=== PATIENT | male | born 2005 | race Caucasian/White ===

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

== ENCOUNTER 2025-01-14 21:32 | Emergency (ER) | payer BC, SELFPAY ==
[2025-01-14 21:33] VITALS: BP 143/69; PULSE 117; RESP 14; TEMP 36.8; O2SAT 97
--- NOTE | 2025-01-14 21:47 | W.ED.WOUNDLC ---
HPI - Wound/Laceration General: Chief Complaint: Wound/Laceration Stated Complaint: busted chin Time Seen by Provider: 01/14/25 21:40 Source: patient Mode of arrival: ambulatory Limitations: no limitations History of Present Illness: Patient is a nice 19-year-old male who presents to ED today for evaluation of a chin laceration that he sustained just prior to arrival after he was playing basketball with some other individuals and he accidentally got elbowed to the chin. Tetanus is up-to-date. Onset (ago): hour(s) Location: face Place: outdoors Patient tetanus UTD: Yes Context: accidental Associated symptoms: Reports no associated symptoms Related Data Previous Rx's ?Medication ?Instructions ?Recorded albuterol sulfate 90 mcg/actuation 2 puff inhalation Q6H PRN 10/03/22 aerosol inhaler shortness of breath or wheezing #8.5 grams Allergies Allergy/AdvReac Type Severity Reaction Status Date / Time No Known Allergies Allergy Verified 01/14/25 21:38 Review of Systems Eyes: Denies: change in vision ENMT: Reports: other (chin laceration); Denies: throat pain, odynophagia, mouth pain, swelling of lips/tongue, oral sores, bleeding gums or dental pain Skin/Breast: Reports: other (chin laceration) PFS ED PFSH: Medical History Eczema Asthma Surgical History No history of previous surgery Family History Grandfather Cancer nonhodgkins lymphoma Denies family history of Diabetes CAD (coronary artery disease) Hyperlipidemia Family history of premature coronary artery disease Hypertension Stroke Social History Smoking and tobacco/nicotine status: never used tobacco/nicotine Alcohol intake: never Substance/Drug Use: never Lives independently: Yes Household members: other Details: parents Marital status: Single Number of children: 0 Education level details: college student at [employer] (prepharm) Current occupational status: employed 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 gaping chin laceration-2cm MOUTH: Normal oral and palatal mucosa present and lip normal TEETH & GINGIVA: Yes other (no dental injuries noted) Neuro: COMMON NORMALS: patient oriented x3 SENSORIUM/ORIENTATION: Yes alert, Yes oriented to person, Yes oriented to place and Yes oriented to time Procedures Laceration Laceration 1: Site: face (chin) Size (cm): 2.0 Description: linear Depth: simple, single layer Local Anesthetic: lidocaine 1% and with epi Amount of anesthesia used (mL): 2.0 Pre-repair: wound explored and irrigated extensively Skin layer closed with: nylon Size (cm): 4-0 Number of sutures: 4 Technique: simple, interrupted Course Vital Signs: Vital signs: Vital Signs Temperature 98.3 F 01/14/25 21:33 Pulse Rate 117 H 01/14/25 21:33 Respiratory Rate 14 01/14/25 21:33 Blood Pressure 143/69 01/14/25 21:33 Pulse Oximetry 97 01/14/25 21:33 MDM - Wound/Laceration Medical Decision Making Wound was copiously irrigated and repaired as documented. Tetanus is up-to-date. Wound care/infection precautions discussed. Differential Diagnosis Likely laceration Medical Records I reviewed the patient's medical records. No radiology studies performed this visit Discharge Plan Discharge Patient Disposition: Home Clinical Impression: Chin laceration Qualifiers: Encounter type: initial encounter Qualified Code(s): S01.81XA - Laceration without foreign body of other part of head, initial encounter Condition: Stable Prescriptions: No Action albuterol sulfate 90 mcg/actuation HFA aerosol inhaler 2 puff inhalation Q6H PRN (Reason: shortness of breath or wheezing) Qty: 8.5 0RF Discharge Orders: Discharge ED (Routine); Ordered 01/14/25 Ordered By: Kenna Hamilton Referrals: Michelle Will MD [Primary Care Provider] - Patient Instructions: Care For Your Stitches (DC), Laceration (DC), Facial Laceration (ED) Activity Restrictions/Additional Instructions: Keep wound/laceration clean with warm soap and water twice daily. Monitor for signs of infection such as redness, swelling, increased pain, or drainage. Please seek medical re-evaluation if these occur. If you received sutures today these will need to be removed (unless you were told by the provider that they are absorbable). The provider should have discussed with you the length of time until removal-7 DAYS. Print Language: Thai Coding Level of Care Code ED Nursing Specialist for Jessie Salamanca
== END 2025-01-14 22:49 | disposition home or self-care (01) ==
PROVIDERS: Emergency Provider Physician Assistant; PCP Family Medicine
DX: S01.81XA Laceration without foreign body of other part of head, initial encounter (principal); X58.XXXA Exposure to other specified factors, initial encounter; Y93.67 Activity, basketball
CPT/HCPCS: 12011; 99282